=== PATIENT | male | born 1990 | race Two or more races ===

== ENCOUNTER 2024-03-09 15:00 | Emergency (ER) | payer OTHER ==
[~2024-03-09] VITALS: Ht 177.8 cm; Wt 90.7 kg
[~2024-03-09 15:00] MED LIST: GILTUSS TR TAB1 EACH PO; ZYRTEC10 MG PO
[2024-03-09 17:02] LABS: HEMOGLOBIN 13.4 g/dL (13-16.00); MEAN CORPUSCULAR HEMOGLOBIN 26.7 pg (27.00-32.0); MEAN CORPUSCULAR HGB CONC 33.4 g/dl (32.0-36.0); PLATELET COUNT 277 K/uL (150-450); RED BLOOD COUNT 4.99 M/uL (4.00-6.00)
[2024-03-09 17:17] LABS: PH,URINE 7.5 (5.0-8.0); URINE APPEARANCE Clear; URINE BACTERIA 7.5 uL (0.0-1933); URINE BILIRRUBIN Negative (NEGATIVE); URINE BLOOD Negative; URINE COLOR Yellow; URINE GLUCOSE Negative (NEGATIVE); URINE LEUKOCYTE Negative; URINE NITRATE Negative; URINE PROTEIN Negative (NEGATIVE); URINE UROBILINOGEN 0.2 E.U./dl
[2024-03-09 17:24] LABS: CALCIUM 9.2 mg/dL (8.5-10.1); CREATININE SERUM 0.94 mg/dL (0.70-1.30); GFR 91.87; POTASSIUM 3.72 mEq/L (3.5-5.1)
[2024-03-09 17:24] LABS: URINE RBC 0.2 uL (0.0-20.8)
[2024-03-09 17:25] LABS: URINE EPITHELIAL CELLS 0.4 uL (0.0-38.8); URINE WBC 1.2 uL (0.0-23.2)
== END 2024-03-09 19:48 | disposition home or self-care (01) ==
LOC: ER 15:00
PROVIDERS: General Practice
DX: N43.2 Other hydrocele (principal); N50.812 Left testicular pain

== ENCOUNTER → 2025-11-06 | Emergency (ER) | payer OTHER ==
[~2025-11-06] VITALS: Ht 180.3 cm; Wt 95.3 kg
[~2025-11-06] MED LIST changes: +CEFTRIAXONE SODIUM 1,000 MG VIAL IM ONE; +CEFTRIAXONE SODIUM 1,000 MG VIAL ONE; +DIPHTH,PERTUSS(ACELL),TET VAC 0.5 ML SYRINGE IM ONE; +DIPHTH,PERTUSS(ACELL),TET VAC 0.5 ML VIAL IM ONE; +LIDOCAINE HCL 1% 10ML VIAL ONE; +LIDOCAINE HCL 1% 10ML VIAL PERCUT ONE
== END | disposition home or self-care (01) ==
LOC: ER 20:03
DX: S61.215A Laceration without foreign body of left ring finger without damage to nail, initial encounter (principal); W27.0XXA Contact with workbench tool, initial encounter; Y93.89 Activity, other specified; Y92.89 Other specified places as the place of occurrence of the external cause; Y99.9 Unspecified external cause status